=== PATIENT | female | born 1930 | race Caucasian/White ===

== ENCOUNTER 2019-11-01 10:21 | Day surgery (SDC) | payer MEDICARE ==
[~2019-11-01] VITALS: Ht 152.4 cm; Wt 59.4 kg
[2019-11-01] VITALS (8 sets, daily range): BP systolic 120–176; BP diastolic 45–57; PULSE 63–72; TEMP 97.9–98.3
[~2019-11-01 10:21] MED LIST: ALPHA LIPOIC A200 M2 PO; ALPHA LIPOIC ACID; AMARYL 2MG T2 MG/TAB PO; AMITRIPTYLINE H25 M1 PO; ASPIRIN 32325 MG/TAB PO; ASPIRIN E.C. 8181 MG PO; AZOPT 10 ML10 ML OS; AZOPT OU; BETIMOL 5 ML5 ML OP; BIO-TN500 MCG PO; COMBIGAN 0.2%-0.5 ML OU; COMBIGAN 0.2%-010 ML OP; CYANOCOBAL1000 MCG/1 IJ; CYMBALTA 30MG30 MG PO; FISH OIL1 IU PO; GLUCOVANCE; GLUCOVANCE 1.251 TAB PO; LIPITOR 40MG TA40 MG PO; LIPITOR80 MG PO; LIVALO2 MG PO; MAG CITRATE; MASON NATURAL2000 IU PO; METOPROLOL SUC100 M1 PO; PLAVIX 75MG TAB75 MG PO; PRINIVIL40 MG PO; TENORMIN50 MG PO; TIMOPTIC OCUDOSE0.5% OP; TOPROL XL 50MG50 MG PO; TYLENOL 325MG325 MG PO; ULTRAM 50MG TAB50 MG PO; UROCIT-K 5540 MG/TAB PO; VITAMIN B12 PO; VITAMIN C BUFF500 MG PO; VITAMIN C1 TAB PO; VITAMIN K0.1 MG PO; XALATAN EYE DROPS OS; [UNRECOGNIZED DRUG - OTHER]
[2019-11-01] MEDS ORDERED: ALA 100MG PO (11:02)
[2019-11-01] MEDS ORDERED: LIPITOR 40MG TA40 MG PO (11:03)
[2019-11-01] MEDS ORDERED: AMITRIPTYLINE H25 M1 PO (11:03)
[2019-11-01] MEDS ORDERED: AMARYL 2MG T2 MG/TAB PO (11:03)
[2019-11-01] MEDS ORDERED: CYMBALTA 30MG30 MG PO (11:04)
[2019-11-01] MEDS ORDERED: MASON NATURAL2000 IU PO (11:04)
[2019-11-01] MEDS ORDERED: BETIMOL 5 ML5 ML OU (11:04)
[2019-11-01] MEDS ORDERED: ULTRAM 50MG TAB50 MG PO (11:05)
[2019-11-01] MEDS ORDERED: VITAMIN K0.1 MG PO (11:05)
[2019-11-01] MEDS ORDERED: PLAVIX 75MG TAB75 MG PO (11:07)
[2019-11-01] MEDS ORDERED: NORCO 325 MG-51 TAB PO (15:38)
--- NOTE | 2019-11-01 16:30 | NUR ---
Patient arrives to [facility] [place] [address] via cart, accompanied by LOAN OFFICER Juliette. She is asleep. She arouses to name and light touch. She is alert to self, but not to other orientation questions. This was reported to Dr. Cardona by BRIDGET Segovia, who reports that Dr. Cardona would like for her to be discharged home to [facility]. Monitoring is applied - VSS and WNL on 2L oxygen per nasal cannula. Call light in reach. Patient is sleeping.
--- NOTE | 2019-11-01 16:45 | NUR ---
Patient is sleeping. She arouses to voice. She is unable to answer orientation questions. When she is asked her birthday, she states "[birth year]". She quickly falls back to sleep. VSS on 2L oxygen. She is given more warm blankets for comfort. Her cast is clean/dry/intact. Her toes are pink and warm.
--- NOTE | 2019-11-01 17:00 | NUR ---
Patient is sleeping. VSS on 2L oxygen.
--- NOTE | 2019-11-01 17:15 | NUR ---
Patient is more awake. She is able to answer name, place, reason for stay at the hospital. She is unable to feel touch to her toes and states that is baseline with her neuropathy. She is unable to more toes. She had a block placed prior to surgery. VSS. Oxygen is titrated to off. She denies pain or need. Will continue to monitor.
--- NOTE | 2019-11-01 17:30 | NUR ---
VSS and WNL on room air. Patient is alert and oriented. She is sitting up in bed. She is eating/drinking jello and water.
--- NOTE | 2019-11-01 18:00 | NUR ---
VSS on room air. Patient has ate jello and drank water. She denies pain or nausea. She transfers to wheelchair with help of staff. She is taken to the restroom. She voids large amount of clear, yellow urine. She returns to room and is assisted to change clothing. PIV is removed with catheter intact and hemostasis achieved. Transportation is called to transport the patient back to [facility].
--- NOTE | 2019-11-01 18:34 | NUR ---
Report is called to the [facility] RN at this time.
--- NOTE | 2019-11-01 18:39 | NUR ---
Patient is escorted to the exit via wheelchair by staff. She is discharged to home with [facility] at 1839.
== END 2019-11-01 18:39 | disposition home or self-care (01) ==
LOC: SDCO 10:21
DX: S82.851A Displaced trimalleolar fracture of right lower leg, initial encounter for closed fracture (principal); M19.90 Unspecified osteoarthritis, unspecified site; E78.00 Pure hypercholesterolemia, unspecified; I25.10 Atherosclerotic heart disease of native coronary artery without angina pectoris; I25.2 Old myocardial infarction; I10 Essential (primary) hypertension; E11.42 Type 2 diabetes mellitus with diabetic polyneuropathy; E11.39 Type 2 diabetes mellitus with other diabetic ophthalmic complication; Z90.710 Acquired absence of both cervix and uterus; Z79.82 Long term (current) use of aspirin; Z88.2 Allergy status to sulfonamides; G89.18 Other acute postprocedural pain
CPT/HCPCS: J0360; J0690; J1100; J1885; J2250; J2405; J2704; J2795; J7030

== ENCOUNTER 2020-01-30 09:00 | Outpatient (RCR) | payer MEDICARE, BC ==
[~2020-01-30 09:00] MED LIST changes: +ALA 100MG PO; +BETIMOL 5 ML5 ML OU; +NORCO 325 MG-51 TAB PO
== END 2020-02-04 09:46 | disposition home or self-care (01) ==
LOC: MKS.ESL.PT 09:00
DX: S82.891A Other fracture of right lower leg, initial encounter for closed fracture (principal)

== ENCOUNTER 2021-01-28 08:37 | Outpatient (RCR) | payer MEDICARE, BC | END 2021-02-16 08:14 | disposition home or self-care (01) | LOC: MKS.ESL.PT 08:37 | DX: H81.13 Benign paroxysmal vertigo, bilateral (principal) ==